=== PATIENT | male | born 1975 | race Caucasian/White ===

== ENCOUNTER 2020-05-15 09:56 | Emergency (ER) | payer MEDICAID ==
[~2020-05-15] VITALS: Ht 182.9 cm; Wt 93.0 kg
[2020-05-15 10:04] VITALS: BP_SYST 117
--- NOTE | 2020-05-15 10:18 | NUR ---
Patient to ER bed 07 to gown for evaluation. Side rails up.
--- NOTE | 2020-05-15 10:19 | NUR ---
Patient arrived in the ED c/o redness and discharge on the left eye that started this morning. Denied any chest pain or shortness of breath. Denied any fevers, chills, nausea or vomiting. Patient is alert and oriented x4, respirations even and unlabored, speaking in full sentences, and ambulating with a steady gait. VSS, pain level 3/10. Informed of the approximate wait time. Instructed to notify ED staff for any changes in condition or worsening of symptoms while waiting to be seen by an ED provider. Patient verbalized understanding.
--- NOTE | 2020-05-15 10:21 | NUR ---
ER Dr. Jina Hernandez at bedside examining patient.
--- NOTE | 2020-05-15 10:28 | NUR ---
Patient given written and verbal discharge instructions and verbalizes understanding. ER MD discussed with patient the results and treatment provided. Patient in stable condition. ID arm band removed. Rx of Ofloxacin given. Patient educated on pain management and to follow up with PMD. Pain Scale 0/10. Opportunity for questions provided and answered. Medication side effect fact sheet provided.
[2020-05-15 10:29] VITALS: BP_SYST 117
== END 2020-05-15 10:28 | disposition home or self-care (01) ==
LOC: SED 09:56
DX: H10.89 Other conjunctivitis (principal)
CPT/HCPCS: 99283

== ENCOUNTER 2021-12-21 09:06 | Inpatient (IN) | payer MEDICAID ==
[~2021-12-21] VITALS: Ht 182.9 cm; Wt 86.2 kg
[2021-12-21 09:43] VITALS: BP_SYST 148
--- NOTE | 2021-12-21 09:47 | NUR ---
Patient to ER bed 5 to gown for evaluation. Side rails up. Report given to Amy REYNOLDS/Katheryn REYNOLDS.
--- NOTE | 2021-12-21 09:50 | NUR ---
PT CAME IN FROM HOME C/O GENERALIZED SHARP MID ABD PAIN X 2 WEEKS WITH NAUSEA. PT IS AMBULATORY, AAOX4, VSS
--- NOTE | 2021-12-21 10:06 | NUR ---
ER DR. VILLAGRAN AT THE BEDSIDE EXAMINING PT
[2021-12-21 10:15] LABS: BILIRUBIN,URINE NEGATIVE (NEGATIVE); BLOOD, URINE NEGATIVE (NEGATIVE); CLARITY/URINE CLEAR (CLEAR); COLOR,URINE YELLOW (YELLOW); GLUCOSE,URINE NEGATIVE (NEGATIVE); KETONES,URINE NEGATIVE (NEGATIVE); LEUKOCYTE ESTERASE ,URINE NEGATIVE (NEGATIVE); NITRITE, URINE NEGATIVE (NEGATIVE); PROTEIN URINE NEGATIVE (NEGATIVE); UROBILINOGEN,URINE 0.2 (0.2-1.0)
[2021-12-21] MEDS ORDERED: MAG HYDROX/AL HYDROX/SIMETH 30 ML, DICYCLOMINE HCL 20 MG, LIDOCAINE VISCOUS 2% 15ML (PO... PO ONE ×3 (10:15)
--- NOTE | 2021-12-21 10:18 | NUR ---
PT TO ULTRASOUND VIA AMBULATION ACCOMPANIED BY STAFF.
[2021-12-21 10:33] LABS: BASOPHILS # (AUTO) 0.1 K/uL (0.0-0.2); BASOPHILS % (AUTO) 0.7 % (0.0-2.0); EOSINOPHILS # (AUTO) 0.1 K/uL (0.0-0.4); EOSINOPHILS % (AUTO) 0.4 % (0.0-4.0); HEMATOCRIT 45.4 % (36-54); HEMOGLOBIN 15.3 g/dL (14.0-18.0); LYMPHOCYTES # (AUTO) 1.5 K/uL (1.0-5.5); LYMPHOCYTES % (AUTO) 12.4 % (20.5-51.5); MEAN CORPUSCULAR HEMOGLOBIN 28 pg (27-31); MEAN CORPUSCULAR HGB CONC 34 % (32-36); MEAN CORPUSCULAR VOLUME 84 fL (79.0-98.0); MONOCYTES # (AUTO) 0.6 K/uL (0.0-1.0); MONOCYTES % (AUTO) 5.5 % (1.7-9.3); NEUTROPHILS # (AUTO) 9.5 K/uL (1.8-7.7); PLATELET COUNT (AUTO) 197 K/uL (130-430); RED BLOOD CELL COUNT(AUTO) 5.43 MIL/uL (4.2-6.2); RED CELL DISTRIBUTION WIDTH 14.5 % (9.0-15.0); WHITE BLOOD COUNT (AUTO) 11.7 K/uL (4.8-10.8)
[2021-12-21 10:43] LABS: CALCIUM 8.3 mg/dL (8.4-11.0); CREATININE 1.15 mg/dL (0.55-1.30); POTASSIUM 3.9 mmol/L (3.5-5.1)
[2021-12-21 10:49] LABS: ALBUMIN 3.7 g/dL (3.4-4.8); TOTAL BILIRUBIN 0.8 mg/dL (0.0-1.0)
[2021-12-21] MEDS ORDERED: PIPERACILLIN/TAZO 3.375 GM in NS 50 ML IV ONE (12:30)
[2021-12-21] MEDS ORDERED: metroNIDAZOLE 500 MG TABLET PO ONE (12:30)
[2021-12-21] MEDS ORDERED: NACL 0.9% 1,000 ML IV ONE (12:30)
[2021-12-21] MEDS ORDERED: MORPHINE 4 MG INJ. 4 MG/ML VIAL IVP ONE ×2 (12:45)
[2021-12-21] MEDS ORDERED: KETOROLAC TROMETHAMINE 30 MG VIAL IVP ONE (12:45)
[2021-12-21] MEDS ORDERED: PIPERACILLIN/TAZOBACTAM 3.375 GM/VIAL (ZOSYN) IV ONE (12:48)
--- NOTE | 2021-12-21 12:50 | NUR ---
# 20 gauge angiocath placed to RAC. Use of asceptic technique. Opsite placed over site. Blood return noted. Blood for lab drawn from site. Flushed with 10 cc of normal saline. No evidence of infiltration noted. Patient tolerated well.
--- NOTE | 2021-12-21 15:40 | NUR ---
Admit bed requested Patient will be admitted to care of . Admitted to MED/SURG unit. Diagnosis CHOLECYSTITIS Inpatient (Yes or No) NO Observation (Yes or No) YES Orientation concerns or request close to nursing station (Yes or No) NO Covid Status YES On vent or bipap NO Isolation requirements NO Needs a sitter NO From Home (Yes or if No enter name of facility) YES Requires Dialysis (Yes or No) NO Med Rec Completed (Yes of No) YES
--- NOTE | 2021-12-21 16:21 | NUR ---
PT PROVIDED WITH SANDWICH BOX
--- NOTE | 2021-12-21 17:30 | NUR ---
DINNER TRAY PROVIDED TO PT
--- NOTE | 2021-12-21 19:10 | NUR ---
REPORT GIVEN RODOLFO CULVER FOR CONTINUING CARE
[2021-12-21 20:00] VITALS: BP_SYST 126
--- NOTE | 2021-12-21 20:02 | NUR ---
Bedside report given to RN after patient ambulated to bed without issue. All questions answered.
--- NOTE | 2021-12-21 20:03 | NUR ---
Bedside Report received from ED RN. Pt received in stable condition and in MS status.
--- NOTE | 2021-12-21 20:04 | NUR ---
Patient will be admitted to care of [facility] surge. Admitted to unit. Will go to room . Belongings list completed. Complete and up to date summary report printed. SBAR report to be given at bedside with opportunity for questions.
[2021-12-22 08:00] VITALS: BP_SYST 135
--- NOTE | 2021-12-22 08:00 | NUR ---
OPENING NOTES: PATIENT RESTING IN BED. BREATHING EVEN AND NO LABORED TO RA. FALL, SAFETY AND ASPIRATION MEASURES REINFORCED. CALL LIGHT WITHIN REACH.
[2021-12-22] MEDS: PANTOPRAZOLE SODIUM 40 MG TAB PO SCH (10:10)
--- NOTE | 2021-12-22 11:25 | NUR ---
DR. YOLANDA TORRES (EGD CALARIFICATION): DR. YOLANDA TORRES FOR EGD CLARIFICATION. WAITING FOR HIM TO CALL BACK.
--- NOTE | 2021-12-22 11:51 | NUR ---
DR. GUERRERO SPOKE TO THE GI NURSE: PER DR. GUERRERO SCHEDULE EGD TODAY AT 1400. PATIENT IS NPO AFTER BREAKFAST TODAY.
[2021-12-22 12:00] VITALS: BP_SYST 125
[2021-12-22] MEDS ORDERED: LORazepam 2 MG/ML VIAL IVP PRN (12:15)
[2021-12-22] MEDS ORDERED: NALOXONE HCL 0.4 MG/ML AMP (NARCAN) IVP PRN (12:15)
[2021-12-22] MEDS ORDERED: ONDANSETRON HCL 4 MG/2 ML VIAL IVP PRN (12:15)
[2021-12-22] MEDS ORDERED: fentaNYL CITRATE/PF 100 MCG/2 ML AMP ONE (13:42)
[2021-12-22] MEDS: D5/0.45 NS 1,000 ML IV SCH ×2 (13:43→22:33)
[2021-12-22] MEDS ORDERED: SIMETHICONE 40 MG/0.6 ML ML ONE (13:43)
--- NOTE | 2021-12-22 13:50 | NUR ---
PT BROUGHT TO GI LAB (EGD): PT BROUGHT TO GI LAB VIA WHEEL CHAIR FOR EGD. PATIENT ON STABLE CONDITION.
[2021-12-22] MEDS: MIDAZOLAM HCL 5 MG/5 ML VIAL ONE ×3 (14:03→14:10)
[2021-12-22] MEDS ORDERED: MIDAZOLAM HCL 5 MG/5 ML VIAL ONE (14:11)
[2021-12-22] MEDS ORDERED: DIPHENHYDRAMINE INJ 50 MG/ML VIAL ONE (14:40)
[2021-12-22 16:30] VITALS: BP_SYST 115
[2021-12-22] MEDS: PIPERACILLIN/TAZO 3.375/DEX-IS 50 ML IV SCH ×2 (17:11→23:17)
--- NOTE | 2021-12-22 18:49 | NUR ---
CLOSING NOTES: PATIENT RESTING IN BED. NO S/S OF ACUTE DISTRESS NOTED. FALL AND SAFETY MEASURES RENDERED. IV PATENT AND INFUSING WELL. NEEDS MET THROUGHOUT SHIFT. CALL LIGHT WITHIN REACH. WILL CONTINUE MONITOR UNTIL ENDORSE TO FLAKE DRIER RN.
--- NOTE | 2021-12-22 19:41 | NUR ---
RECEIVED PT LYING IN BED, NO DISTRESS NOTED, DENIES PAIN, DISCOMFORT TO EPIGASTRIC AREA WITH LIGHT PALPATION. NO INCREASED PT UPON HAVING DINNER. NO N/V.
[2021-12-22 20:13] VITALS: BP_SYST 124
[2021-12-22] MEDS: MORPHINE 4 MG INJ. 4 MG/ML VIAL IVP PRN (22:37)
[2021-12-23 00:55] VITALS: BP_SYST 112
[2021-12-23] MEDS: PIPERACILLIN/TAZO 3.375/DEX-IS 50 ML IV SCH ×4 (05:28→23:46)
[2021-12-23] MEDS: D5/0.45 NS 1,000 ML IV SCH ×2 (05:35→18:15)
[2021-12-23 07:13] LABS: BASOPHILS # (AUTO) 0.1 K/uL (0.0-0.2); BASOPHILS % (AUTO) 1.2 % (0.0-2.0); EOSINOPHILS # (AUTO) 0.1 K/uL (0.0-0.4); EOSINOPHILS % (AUTO) 1.9 % (0.0-4.0); HEMATOCRIT 43.4 % (36-54); HEMOGLOBIN 14.8 g/dL (14.0-18.0); LYMPHOCYTES # (AUTO) 1.5 K/uL (1.0-5.5); LYMPHOCYTES % (AUTO) 28.7 % (20.5-51.5); MEAN CORPUSCULAR HEMOGLOBIN 29 pg (27-31); MEAN CORPUSCULAR HGB CONC 34 % (32-36); MEAN CORPUSCULAR VOLUME 85 fL (79.0-98.0); MONOCYTES # (AUTO) 0.4 K/uL (0.0-1.0); MONOCYTES % (AUTO) 7.8 % (1.7-9.3); NEUTROPHILS # (AUTO) 3.1 K/uL (1.8-7.7); NEUTROPHILS % (AUTO) 60.4 % (40.0-70.0); PLATELET COUNT (AUTO) 181 K/uL (130-430); RED BLOOD CELL COUNT(AUTO) 5.12 MIL/uL (4.2-6.2); RED CELL DISTRIBUTION WIDTH 14.3 % (9.0-15.0); WHITE BLOOD COUNT (AUTO) 5.2 K/uL (4.8-10.8)
[2021-12-23 07:40] LABS: ALBUMIN 3.1 g/dL (3.4-4.8); CALCIUM 7.9 mg/dL (8.4-11.0); CREATININE 1.08 mg/dL (0.55-1.30); POTASSIUM 3.7 mmol/L (3.5-5.1)
[2021-12-23 08:00] VITALS: BP_SYST 130
--- NOTE | 2021-12-23 08:00 | NUR ---
Initial Note: Received patient in bed, asleep, safety precaution observed, no s/s of distress or discomfort noted, call light within reach.
[2021-12-23] MEDS ORDERED: DIATR MEGLU/DIATRIZ SOD 30 ML SOLUTION PO ONE (08:04)
[2021-12-23 08:09] LABS: TOTAL BILIRUBIN 5.3 mg/dL (0.0-1.0)
[2021-12-23] MEDS: PANTOPRAZOLE SODIUM 40 MG TAB PO SCH (09:53)
--- NOTE | 2021-12-23 10:30 | NUR ---
PT BROUGHT TO CT SCAN: PATIENT BROUGHT TO CT SCAN FOR CT ABDOMEN/PELVIS W/ ORAL CONTRAST. PATIENT IN STABLE CONDITION.
[2021-12-23 12:00] VITALS: BP_SYST 122
[2021-12-23 16:00] VITALS: BP_SYST 120
--- NOTE | 2021-12-23 18:48 | NUR ---
Closing Note: Patient alert, oriented, able to make needs known. Able to ambulate and use bathroom independently. Patient needs met throughout the shift. IV patent, intact and infusing well. Safety precaution observed, call light within reach. Will continue to monitor until next shift. No signs of distress or discomfort noted.
[2021-12-23 19:39] VITALS: BP_SYST 118
[2021-12-23 23:29] VITALS: BP_SYST 130
[2021-12-23] MEDS: MORPHINE 4 MG INJ. 4 MG/ML VIAL IVP PRN (23:38)
[2021-12-24] MEDS: D5/0.45 NS 1,000 ML IV SCH ×3 (03:08→23:21)
[2021-12-24] MEDS: PIPERACILLIN/TAZO 3.375/DEX-IS 50 ML IV SCH ×4 (05:46→23:20)
[2021-12-24 08:00] VITALS: BP_SYST 122
[2021-12-24 08:08] LABS: BASOPHILS % (AUTO) 0.6 % (0.0-2.0); EOSINOPHILS # (AUTO) 0.2 K/uL (0.0-0.4); EOSINOPHILS % (AUTO) 2.5 % (0.0-4.0); HEMATOCRIT 46.2 % (36-54); HEMOGLOBIN 15.6 g/dL (14.0-18.0); LYMPHOCYTES # (AUTO) 1.4 K/uL (1.0-5.5); LYMPHOCYTES % (AUTO) 21.8 % (20.5-51.5); MEAN CORPUSCULAR HEMOGLOBIN 29 pg (27-31); MEAN CORPUSCULAR HGB CONC 34 % (32-36); MEAN CORPUSCULAR VOLUME 85 fL (79.0-98.0); MONOCYTES # (AUTO) 0.7 K/uL (0.0-1.0); MONOCYTES % (AUTO) 11.2 % (1.7-9.3); NEUTROPHILS # (AUTO) 4.1 K/uL (1.8-7.7); NEUTROPHILS % (AUTO) 63.9 % (40.0-70.0); PLATELET COUNT (AUTO) 199 K/uL (130-430); RED BLOOD CELL COUNT(AUTO) 5.42 MIL/uL (4.2-6.2); WHITE BLOOD COUNT (AUTO) 6.5 K/uL (4.8-10.8)
[2021-12-24 08:35] LABS: ALBUMIN 3.1 g/dL (3.4-4.8); C-REACTIVE PROTEIN QUANT 1.9 mg/dL (0-0.5); CREATININE 1.16 mg/dL (0.55-1.30); POTASSIUM 3.5 mmol/L (3.5-5.1); TOTAL BILIRUBIN 4.2 mg/dL (0.0-1.0)
[2021-12-24] MEDS: PANTOPRAZOLE SODIUM 40 MG TAB PO SCH (09:20)
[2021-12-24 09:21] LABS: ERYTHROCYTE SEDIMENTATION RATE 12 MM/HR (0-15)
[2021-12-24 12:00] VITALS: BP_SYST 114
[2021-12-24] MEDS: MORPHINE 2 MG/ML INJ. SYRINGE IVP PRN (12:20)
[2021-12-24 16:00] VITALS: BP_SYST 108
--- NOTE | 2021-12-24 19:30 | NUR ---
OPENING NOTES: Patient received from AM shift. Patient is AA&Ox4 able to make needs known, denies chest pain or SOB. Chest rise is even and unlabored on RA. Normal heart sounds present on Medsurg monitoring. Active BS x4. Pain noted on palpation, when palpating upper abdomen. Patient is ambulatory and continent of of B&B. Will resume care of patient and continue to monitor throughout the shift.
[2021-12-24 20:00] VITALS: BP_SYST 126
[2021-12-24] MEDS: MORPHINE 4 MG INJ. 4 MG/ML VIAL IVP PRN (21:07)
[2021-12-25 00:30] VITALS: BP_SYST 114
[2021-12-25] MEDS: PIPERACILLIN/TAZO 3.375/DEX-IS 50 ML IV SCH ×4 (05:13→23:08)
[2021-12-25 06:22] LABS: BASOPHILS % (AUTO) 0.8 % (0.0-2.0); EOSINOPHILS # (AUTO) 0.2 K/uL (0.0-0.4); EOSINOPHILS % (AUTO) 2.9 % (0.0-4.0); HEMATOCRIT 45.1 % (36-54); HEMOGLOBIN 15.2 g/dL (14.0-18.0); LYMPHOCYTES # (AUTO) 1.5 K/uL (1.0-5.5); LYMPHOCYTES % (AUTO) 27.4 % (20.5-51.5); MEAN CORPUSCULAR HEMOGLOBIN 29 pg (27-31); MEAN CORPUSCULAR HGB CONC 34 % (32-36); MEAN CORPUSCULAR VOLUME 85 fL (79.0-98.0); MONOCYTES # (AUTO) 0.6 K/uL (0.0-1.0); MONOCYTES % (AUTO) 11.9 % (1.7-9.3); PLATELET COUNT (AUTO) 185 K/uL (130-430); RED BLOOD CELL COUNT(AUTO) 5.32 MIL/uL (4.2-6.2); RED CELL DISTRIBUTION WIDTH 14.8 % (9.0-15.0); WHITE BLOOD COUNT (AUTO) 5.3 K/uL (4.8-10.8)
--- NOTE | 2021-12-25 06:31 | NUR ---
CLOSING NOTES: Patient is in bed resting no s/s of distress is noted at this time. Patient is AA&Ox4 able to verbalize needs, denies any pain or discomfort at this time. All current shift needs have been met at this time, and safety protocols remain in place. Patient has call light within reach. Will differ further care to AM shift for continuity of care.
[2021-12-25 06:43] LABS: ALBUMIN 2.9 g/dL (3.4-4.8); C-REACTIVE PROTEIN QUANT 1.8 mg/dL (0-0.5); CREATININE 1.13 mg/dL (0.55-1.30); POTASSIUM 3.6 mmol/L (3.5-5.1); TOTAL BILIRUBIN 4.3 mg/dL (0.0-1.0)
[2021-12-25 08:00] VITALS: BP_SYST 113
[2021-12-25] MEDS: PANTOPRAZOLE SODIUM 40 MG TAB PO SCH (09:00)
[2021-12-25 12:00] VITALS: BP_SYST 122
[2021-12-25 12:27] LABS: ERYTHROCYTE SEDIMENTATION RATE 9 MM/HR (0-15)
[2021-12-25] MEDS: D5/0.45 NS 1,000 ML IV SCH ×2 (12:51→21:44)
--- NOTE | 2021-12-25 17:25 | NUR ---
Dr. Marroquin has been made aware of the HIDA scan results for this patient. He also requested to be informed of the results of a hepatitis panel. He was made aware that this test is a send out and has not been resulted as of yet. Addendum: 12/25/21 at 1730 by [place] education manager requested morning labs have been ordered
--- NOTE | 2021-12-25 19:36 | NUR ---
OPENING NOTES: Patient received from AM shift. Patient is AA&Ox4 able to verbalize needs, denies any pain or discomfort at this time. Chest rise is even and unlabored on RA. Patient is ambulatory and continent of both bowel and bladder. PIV noted to RAC patent and infusing at this time. Safety protocols remain in place and patient has call light within reach. Will resume care and continue to monitor throughout the shift.
--- NOTE | 2021-12-25 19:45 | NUR ---
Handoff has been given to Yoana
[2021-12-25 20:00] VITALS: BP_SYST 134
[2021-12-25] MEDS: MORPHINE 4 MG INJ. 4 MG/ML VIAL IVP PRN (21:46)
[2021-12-26 00:38] VITALS: BP_SYST 124
[2021-12-26] MEDS: D5/0.45 NS 1,000 ML IV SCH (05:28)
[2021-12-26] MEDS: PIPERACILLIN/TAZO 3.375/DEX-IS 50 ML IV SCH (05:29)
[2021-12-26 07:02] LABS: BASOPHILS % (AUTO) 0.9 % (0.0-2.0); EOSINOPHILS # (AUTO) 0.2 K/uL (0.0-0.4); EOSINOPHILS % (AUTO) 3.3 % (0.0-4.0); HEMATOCRIT 43.5 % (36-54); HEMOGLOBIN 14.8 g/dL (14.0-18.0); LYMPHOCYTES # (AUTO) 1.6 K/uL (1.0-5.5); LYMPHOCYTES % (AUTO) 30.3 % (20.5-51.5); MEAN CORPUSCULAR HEMOGLOBIN 29 pg (27-31); MEAN CORPUSCULAR HGB CONC 34 % (32-36); MEAN CORPUSCULAR VOLUME 85 fL (79.0-98.0); MONOCYTES # (AUTO) 0.6 K/uL (0.0-1.0); MONOCYTES % (AUTO) 10.8 % (1.7-9.3); NEUTROPHILS # (AUTO) 2.8 K/uL (1.8-7.7); NEUTROPHILS % (AUTO) 54.7 % (40.0-70.0); PLATELET COUNT (AUTO) 190 K/uL (130-430); RED BLOOD CELL COUNT(AUTO) 5.14 MIL/uL (4.2-6.2); RED CELL DISTRIBUTION WIDTH 14.9 % (9.0-15.0); WHITE BLOOD COUNT (AUTO) 5.2 K/uL (4.8-10.8)
--- NOTE | 2021-12-26 07:11 | NUR ---
CLOSING NOTES: Patient is in bed resting no s/s of distress is noted at this time. Patient is AA&Ox4 able to verbalize needs and has call light within reach. All current shift needs have been met at this time, safety protocols are in place. Will differ further care to AM shift for continuity of care.
[2021-12-26 08:00] VITALS: BP_SYST 116
[2021-12-26] MEDS: PANTOPRAZOLE SODIUM 40 MG TAB PO SCH (08:44)
[2021-12-26] MEDS: MORPHINE 2 MG/ML INJ. SYRINGE IVP PRN (08:48)
[2021-12-26 09:33] LABS: ERYTHROCYTE SEDIMENTATION RATE 14 MM/HR (0-15)
[2021-12-26] MEDS ORDERED: traMADol HCL HCL 50 MG TABLET (ULTRAM) PO PRN (10:15)
[2021-12-26] MEDS ORDERED: ACETAMINOPHEN 325 MG TABLET PO PRN (10:15)
[2021-12-26 10:20] LABS: ANION GAP 11 (5-15); CHLORIDE 104 mmol/L (98-107); CREATININE 1.02 mg/dL (0.55-1.30); GFR AFRICAN AMERICAN 101 mL/min (>90); GLUCOSE 99 mg/dL (70-99); POTASSIUM 3.7 mmol/L (3.5-5.1); SODIUM SERUM 137 mmol/L (136-145); UREA NITROGEN, BLOOD 9 mg/dL (8-21)
[2021-12-26 10:21] LABS: ALANINE AMINOTRANSFERASE 234 U/L (12-78); ALBUMIN 2.9 g/dL (3.4-4.8); ASPARTATE AMINOTRANSFERASE 69 U/L (10-37)
[2021-12-26 10:22] LABS: C-REACTIVE PROTEIN QUANT 0.9 mg/dL (0-0.5)
[2021-12-26 10:44] LABS: BILIRUBIN,DIRECT 3.5 mg/dL (0.0-0.3)
[2021-12-26 11:58] VITALS: BP_SYST 107
[2021-12-26] MEDS: traMADol HCL HCL 50 MG TABLET (ULTRAM) PO PRN ×2 (12:42→21:52)
[2021-12-26 16:34] VITALS: BP_SYST 114
--- NOTE | 2021-12-26 18:38 | NUR ---
Mr Gann has been assessed as indicated. He has mid abdominal pain after meals, He has been successfully treated for pain x2 this shift. Oral pain medication was well tolerated. He ambulates without assistance. IVF and IV antibiotics have been DC. He is presently resting quietly
--- NOTE | 2021-12-26 19:30 | NUR ---
OPENING NOTES: Patient received from AM shift nurse. Patient is AA&Ox4 able to make needs known, denies any pain or discomfort at this time. Chest rise is even and unlabored. Normal heart sounds present on Med-surg monitoring. Active BSx4 on auscultation, denies pain with palpation no distention is noted. Safety protocols are in place and patient has call light within reach. Will resume care and continue to monitor throughout the shift.
--- NOTE | 2021-12-26 19:37 | NUR ---
Hand off has been given to Yoana
[2021-12-26 20:00] VITALS: BP_SYST 134
[2021-12-27 01:16] VITALS: BP_SYST 115
[2021-12-27 06:56] LABS: BASOPHILS # (AUTO) 0.1 K/uL (0.0-0.2); BASOPHILS % (AUTO) 0.8 % (0.0-2.0); EOSINOPHILS # (AUTO) 0.2 K/uL (0.0-0.4); EOSINOPHILS % (AUTO) 2.5 % (0.0-4.0); HEMATOCRIT 47.3 % (36-54); HEMOGLOBIN 16.3 g/dL (14.0-18.0); LYMPHOCYTES # (AUTO) 2.1 K/uL (1.0-5.5); LYMPHOCYTES % (AUTO) 32.9 % (20.5-51.5); MEAN CORPUSCULAR HEMOGLOBIN 29 pg (27-31); MEAN CORPUSCULAR HGB CONC 35 % (32-36); MEAN CORPUSCULAR VOLUME 84 fL (79.0-98.0); MONOCYTES # (AUTO) 0.7 K/uL (0.0-1.0); MONOCYTES % (AUTO) 11.2 % (1.7-9.3); NEUTROPHILS # (AUTO) 3.3 K/uL (1.8-7.7); NEUTROPHILS % (AUTO) 52.6 % (40.0-70.0); PLATELET COUNT (AUTO) 198 K/uL (130-430); RED BLOOD CELL COUNT(AUTO) 5.64 MIL/uL (4.2-6.2); WHITE BLOOD COUNT (AUTO) 6.2 K/uL (4.8-10.8)
--- NOTE | 2021-12-27 07:08 | NUR ---
CLOSING NOTES: Patient is resting with no s/s of distress noted at this time. Chest rise is even and unlabored on RA. Patient is AA&Ox4 able to make needs known denies any pain or discomfort at this time. All current shift needs have been met at this time, safety protocols are in place, and patient has call light within reach. Will differ further care to AM shift for continuity of care.
[2021-12-27 07:26] LABS: ALBUMIN 3.2 g/dL (3.4-4.8); CALCIUM 8.7 mg/dL (8.4-11.0); CREATININE 1.03 mg/dL (0.55-1.30); POTASSIUM 4.1 mmol/L (3.5-5.1); TOTAL BILIRUBIN 6.6 mg/dL (0.0-1.0)
[2021-12-27 08:00] VITALS: BP_SYST 120
--- NOTE | 2021-12-27 08:00 | NUR ---
OPENING NOTE Patient in bed resting, AxO x4. No sign of distress and patient denies pain or discomfort. IV access is clean, dry, intact, and saline locked. Updated patient on his plan of care for the day. All needs met at this time and safety checks made.
[2021-12-27] MEDS: PANTOPRAZOLE SODIUM 40 MG TAB PO SCH (08:10)
[2021-12-27] MEDS ORDERED: TRAM50TA2 PO (10:38)
[2021-12-27] MEDS ORDERED: PRO40 PO (10:38)
[2021-12-27 10:57] VITALS: BP_SYST 120
--- NOTE | 2021-12-27 11:38 | NUR ---
D/C Patient Patient given medication reconciliation form and D/C instructions. Exit Care provided. Patient verbalized understanding. MD discussed with patient the results and treatment provided. Ambulatory with steady gait for discharge to home. Patient discharged via private auto to home. Patient in stable condition, ID band removed. IV catheter removed, intact and dressing applied, no active bleeding. 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 Patient educated on pain management. All belongings sent with patient.
[2021-12-28 09:06] LABS: FERRITIN 367 ng/mL (30-400)
[2021-12-28 10:06] LABS: ANTI NUCLEAR AB WITH REFLEX Negative (Negative)
[2022-01-01 13:06] LABS: ANTI-SMOOTH MUSCLE AB 5 Units (0-19)
== END 2021-12-27 11:38 | disposition home or self-care (01) ==
LOC: SED 09:06 → SMU 13:35 → OBSVTOIN 12-22 11:17
PROVIDERS: ADMIT Preventive Medicine Preventive Medicine/Occupational Environmental Medicine; ATTEND Preventive Medicine Preventive Medicine/Occupational Environmental Medicine
PROC: 0DB68ZX Excision of Stomach, Via Natural or Artificial Opening Endoscopic, Diagnostic (ICD-10-PCS; principal; 2021-12-22 14:11)
DX: K80.10 Calculus of gallbladder with chronic cholecystitis without obstruction (principal); D73.4 Cyst of spleen; E83.51 Hypocalcemia; E87.1 Hypo-osmolality and hyponatremia; E88.09 Other disorders of plasma-protein metabolism, not elsewhere classified; E66.9 Obesity, unspecified; E83.52 Hypercalcemia; G89.29 Other chronic pain; K25.9 Gastric ulcer, unspecified as acute or chronic, without hemorrhage or perforation; R74.01 Elevation of levels of liver transaminase levels; R73.9 Hyperglycemia, unspecified; K57.90 Diverticulosis of intestine, part unspecified, without perforation or abscess without bleeding; Z20.822 Contact with and (suspected) exposure to COVID-19; Z87.442 Personal history of urinary calculi; Z68.25 Body mass index [BMI] 25.0-25.9, adult
CPT/HCPCS: 36415; 43239; 74021; 74181; 76376; 76700-TC; 78226; 80053; 80074; 81003; 82247; 82248; 82728; 83516; 83605; 83690; 85025; 85651-TC; 86038; 86140; 87040; 88305; 88312; 88313; 96365; 96375; 99285; A9537; G0378; J1200; J1885; J2001; J2250; J2270; J2543; J3010; Q9964